=== PATIENT | female | born 1945 | race Caucasian/White ===

== ENCOUNTER → 2016-12-09 | Outpatient (CLI) | payer OTHER ==
--- NOTE | 2016-12-09 11:29 | Discharge Instructions ---
Discharge Instructions Procedure Procedure Date: Dec 09, 2016. Reason for visit: Right Thyroid NoduleDr. Verma. Discharge Discharge Date: Dec 09, 2016. Discharge Diagnosis: s/p right lobe thyroid nodule FNA Instructions Activity Recommendations: No limitations Return to School/Work: no limitations Recommended Home Diet: No Limitations Provider Instructions: ACTIVITY RECOMMENDATIONS: * Rest today. * Resume regular activity in one day. MEDICATIONS: * May take Tylenol or Ibuprofen as needed for pain. DIET: * Resume previous diet. SPECIAL CARE INSTRUCTIONS: Call your doctor if: * Temperature above 101 degrees F. * Pain not relieved by pain medicine ordered. * Increased drainage or redness from incision. * Notify your doctor with any questions or concerns. Call your doctor or go to the nearest Emergency Department if you experience: * Increased chest pain or shortness of breath. FOLLOW UP VISIT: Follow-up with Referring Physician as scheduled. Allergies Coded Allergies: No Known Allergies (Verified Allergy, Unknown, 05/01/06) Jerardo Abrams Recommendations: Call your doctor if: * Temperature above 101 degrees * Pain not relieved by pain medicine ordered * There is increased drainage or redness from any incision * You have any unanswered questions or concerns. Your Doctors Instructions noted above were prepared by provider Jonathan Verma. Patient Signature Section: Patient Instructions Signature Page Mandi Roper Patient (or Guardian) Signature/Date: I have read and understand the instructions given to me by my caregivers. Caregiver/RN/Doctor Signature/Date: The above-named patient and/or guardian has received patient instructions on this date. + Original Patient Signature Page (only) stays with chart. Please make copy for patient.
--- NOTE | 2016-12-09 11:58 | DIAGNOSTIC IMAGING REPORT ---
ULTRASOUND GUIDED FINE NEEDLE ASPIRATION OF 1.8 CM RIGHT LOBE THYROID NODULE CLINICAL HISTORY: Thyroid nodule. COMPARISON STUDY: Neck ultrasound October 28, 2016. PROCEDURE: Sonography of the thyroid gland demonstrated several thyroid nodules, the largest of which was a 1.8 cm predominantly solid right lobe nodule. This was targeted for fine needle aspiration. The procedure, risks and benefits were discussed with the patient. The patient agreed to the procedure and informed written consent was obtained. The procedure was performed by Dr. Verma following a timeout. Skin of the right neck was prepped and draped in sterile fashion and local anesthesia achieved with 1% lidocaine. Under direct ultrasound guidance, 1 25-gauge fine needle aspiration targeting the complex component of the right lobe nodule was performed. The sample was deemed preliminarily adequate by pathology. The patient tolerated the procedure well and no immediate complications were evident. IMPRESSION: Ultrasound guided fine needle aspiration of 1.8 cm right lobe thyroid nodule. Electronically signed by: Jonathan Verma M.D. 12/09/2016 11:55 AM Dictated Date/Time: 12/09/2016 11:54 AM
== END | disposition home or self-care (01) ==
LOC: C.ULTR 10:17
DX: E04.2 Nontoxic multinodular goiter (principal)

== ENCOUNTER → 2017-06-23 | Outpatient (CLI) | payer OTHER ==
--- NOTE | 2017-06-23 11:20 | DIAGNOSTIC IMAGING REPORT ---
SOFT TISS HEAD/NECK-THYROID CLINICAL HISTORY: 72 years-old Female with E04.2 Multiple thyroid nodulesPLEASE PERFORM SIX-MONTH FOLLOW-UP. COMPARISON: Thyroid ultrasound 10/28/2016, FNA biopsy 12/09/2016 TECHNIQUE: Multiple real time sonographic images of the thyroid were obtained accessing kenyon scale appearance and color doppler flow. FINDINGS: MEASUREMENTS: Right lobe: 5.8 x 1.8 x 2.5 cm Left lobe: 5.4 x 1.3 x 2.1 cm Isthmus: 0.7 cm PARENCHYMA: The thyroid parenchymal echotexture is diffusely heterogeneous. NODULES: Multiple subcentimeter hypoechoic cystic lesions are seen throughout the bilateral thyroid suggesting colloid cysts. Largest nodule on the right measures 1.2 x 1.1 x 1.3 cm which appears to reflect a cluster of cysts or a septated complex cystic lesion, previously measuring 1.8 cm on study dated 10/28/2016 and 12/09/2016. No new suspicious nodules of the right thyroid identified. Multiple subcentimeter cystic lesions of the left thyroid are noted, large which measure up to 0.8 cm. IMPRESSION: 1. Decreased size of a complex cystic lesion within the right thyroid inferiorly, now measuring 1.3 cm, previously biopsied measuring up to 1.8 cm. 2. No new or suspicious thyroid nodules identified. 3. 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 The above report was generated using voice recognition software. It may contain grammatical, syntax or spelling errors. Electronically signed by: Khalif Brewster M.D. 06/23/2017 11:19 AM Dictated Date/Time: 06/23/2017 11:14 AM
== END | disposition home or self-care (01) ==
LOC: C.ULTR 10:29
DX: E04.2 Nontoxic multinodular goiter (principal)